=== PATIENT | female | born 1955 | race Caucasian/White ===

== ENCOUNTER 2022-07-23 06:44 | Inpatient (IN) ==
[2022-07-23] MEDS ORDERED: NS 0.9% 1000 ml BAG 1,000 ML IV ONE ×2 (08:17→10:51)
[2022-07-23 09:16] LABS: ABS Basophils 0.2 10^3/ul (0-0.2); ABS Eosinophils 0.2 10^3/ul (0-0.6); ABS Lymphocytes 2.6 10^3/ul (1.0-4.8); ABS Monocytes 0.6 10^3/ul (0-0.8); ABS Neutrophils 3.3 10^3/ul (1.5-7.7); Eosinophil % 3.6 %; Hematocrit 23 % (35-47); Hemoglobin 7.4 g/dL (12.0-16.0); Lymphocyte % 37.8 %; Mean Corpuscular HGB Conc 32 g/dL (31-36); Mean Corpuscular Hemoglobin 28 pg (27-31); Mean Corpuscular Volume 88 fL (80-97); Mean Platelet Volume 7.5 fL (7.4-10.4); Platelet Count 277 10^3/uL (150-450); Red Blood Count 2.66 10^6 /uL (3.70-4.87); Red Cell Distribution Width 17 % (10-15); White Blood Count 6.9 10^3/uL (3.5-10.8)
[2022-07-23 09:39] LABS: High Sens Troponin Baseline 9 pg/mL (<15)
[2022-07-23 10:11] LABS: ALT 22 U/L (7-52); AST 40 U/L (13-39); Acetaminophen < 15 mcg/mL; Albumin 2.4 g/dL (3.2-5.2); Albumin/Globulin Ratio 0.7 (1-3); Alcohol, S < 13 mg/dL (<13); Alkaline Phosphatase 77 U/L (35-149); Anion Gap 9 mmol/L (2-11); Blood Urea Nitrogen 39 mg/dL (6-24); CO2 Carbon Dioxide 22 mmol/L (22-32); Calcium 7.8 mg/dL (8.6-10.3); Chloride 101 mmol/L (101-111); Globulin 3.5 g/dL (2-4); Glucose 95 mg/dL (70-100); Potassium 3.7 mmol/L (3.5-5.0); Salicylate < 2.50 mg/dL (<30); Sodium 132 mmol/L (135-145); Total Protein 5.9 g/dL (6.4-8.9); eGFR CKD-EPI 21.1 (>60)
[2022-07-23 11:11] LABS: High Sensitivity Troponin 1 Hr 16 pg/mL (<15)
[2022-07-23] MEDS ORDERED: Magnesium Sulf 4 GM/100 ML IV 4,000 MG/100 ML BAG IVPB ONE (11:35)
[2022-07-23] MEDS ORDERED: Enoxaparin 40 MG/0.4 ML SYR SUBCUT SCH (12:00)
[2022-07-23 13:23] LABS: % Iron Saturation 94 % (15-55); Iron 158 ug/dL (50-212); Total Iron Binding Capacity 168 mcg/dL (250-450); Transferrin 120 mg/dL (203-362); Unsaturated Iron Binding 10 ug/dL
[2022-07-23 13:43] LABS: Ferritin 665.3 ng/mL (11-307)
[2022-07-23] MEDS ORDERED: Lidocaine 1% MPF 5 ML VIAL INJ ONE (15:12)
[2022-07-23] MEDS: Lactulose 30 ml UDC PO SCH ×2 (17:12→21:06)
[2022-07-23] MEDS: Enoxaparin 30 MG/0.3 ML SYR SUBCUT SCH (17:12)
[2022-07-23] MEDS ORDERED: Albuterol/Ipratropium NEB.SOL (2.5/0.5 MG) 3 ML NEB.SOLN INH PRN (17:58)
[2022-07-23 18:40] LABS: Body Fluid Mono 75 %; Body Fluid Other Cells 6; Body Fluid Source Peritonial Fluid; Body Fluid Total Cells Counted 200
[2022-07-23 18:41] LABS: Body Fluid Appearance Cloudy; Body Fluid Color Yellow
[2022-07-23 18:43] LABS: Body Fluid WBC 106 /mcL
[2022-07-23] MEDS: Albuterol/Ipratropium NEB.SOL (2.5/0.5 MG) 3 ML NEB.SOLN INH SCH (19:18)
[2022-07-23 19:54] LABS: INR 1.32 (0.89-1.11)
[2022-07-23 22:14] LABS: Hematocrit 27 % (35-47); Hemoglobin 8.6 g/dL (12.0-16.0)
[2022-07-24 06:23] LABS: Hematocrit 25 % (35-47); Mean Corpuscular HGB Conc 33 g/dL (31-36); Mean Corpuscular Hemoglobin 29 pg (27-31); Mean Corpuscular Volume 88 fL (80-97); Mean Platelet Volume 7.7 fL (7.4-10.4); Platelet Count 238 10^3/uL (150-450); Red Blood Count 2.81 10^6 /uL (3.70-4.87); Red Cell Distribution Width 17 % (10-15); White Blood Count 6.4 10^3/uL (3.5-10.8)
[2022-07-24 06:27] LABS: INR 1.32 (0.89-1.11)
[2022-07-24 06:59] LABS: Albumin 2.1 g/dL (3.2-5.2); Albumin/Globulin Ratio 0.6 (1-3); Calcium 7.6 mg/dL (8.6-10.3); Globulin 3.3 g/dL (2-4); Magnesium 1.7 mg/dL (1.9-2.7); Potassium 3.6 mmol/L (3.5-5.0); Total Protein 5.4 g/dL (6.4-8.9); eGFR CKD-EPI 25.4 (>60)
[2022-07-24] MEDS: Albuterol/Ipratropium NEB.SOL (2.5/0.5 MG) 3 ML NEB.SOLN INH SCH ×3 (06:59→19:11)
[2022-07-24 07:33] LABS: Target Cells 1+
[2022-07-24 07:34] LABS: ABS Lymphocytes 2.4 10^3/ul (1.0-4.8); ABS Neutrophils 3.5 10^3/ul (1.5-7.7)
[2022-07-24] MEDS: Lactulose 30 ml UDC PO SCH ×3 (09:23→19:59)
[2022-07-24] MEDS: Enoxaparin 30 MG/0.3 ML SYR SUBCUT SCH (12:45)
[2022-07-24] MEDS ORDERED: Magnesium Sulfate IV 3 GM in NS 0.9% 100 ml BAG 100 ML IVPB ONE (15:36)
[2022-07-25 05:27] LABS: Hematocrit 24 % (35-47); Hemoglobin 7.8 g/dL (12.0-16.0); Mean Corpuscular HGB Conc 33 g/dL (31-36); Mean Corpuscular Hemoglobin 29 pg (27-31); Mean Corpuscular Volume 87 fL (80-97); Mean Platelet Volume 7.7 fL (7.4-10.4); Platelet Count 252 10^3/uL (150-450); Red Blood Count 2.74 10^6 /uL (3.70-4.87); Red Cell Distribution Width 17 % (10-15); White Blood Count 7.3 10^3/uL (3.5-10.8)
[2022-07-25 05:38] LABS: ABS Basophils 0.1 10^3/ul (0-0.2); ABS Eosinophils 0.2 10^3/ul (0-0.6); ABS Lymphocytes 2.8 10^3/ul (1.0-4.8); ABS Monocytes 0.8 10^3/ul (0-0.8); ABS Neutrophils 3.5 10^3/ul (1.5-7.7); Eosinophil % 3.3 %; Lymphocyte % 37.2 %; Nucleated Red Blood Cells % 0.1
[2022-07-25 05:52] LABS: Calcium 7.7 mg/dL (8.6-10.3); Magnesium 2.2 mg/dL (1.9-2.7); Potassium 3.6 mmol/L (3.5-5.0); eGFR CKD-EPI 27.2 (>60)
[2022-07-25 08:24] LABS: Folate 6.84 ng/mL (5.90-24.80)
[2022-07-25] MEDS: Albuterol/Ipratropium NEB.SOL (2.5/0.5 MG) 3 ML NEB.SOLN INH SCH (08:30)
[2022-07-25] MEDS: Lactulose 30 ml UDC PO SCH (08:53)
[2022-07-25 11:38] VITALS: BP 117/77
[2022-07-25] MEDS: Enoxaparin 30 MG/0.3 ML SYR SUBCUT SCH (11:45)
[2022-07-25 12:49] LABS: Glucose, BF 121 mg/dL
[2022-07-25 12:50] LABS: Fluid Type, Amylase PERITONEAL
[2022-07-25 12:51] LABS: Lactate Dehydrogenase, BF 68 U/L
[2022-07-25 12:54] LABS: Fluid Type, Protein, Total PERITONEAL; Total Protein, BF 1.2 g/dL
[2022-07-25 15:01] LABS: Fluid Type: PERITONEAL; Triglycerides (BF) 42 mg/dL
[2022-07-25 16:11] LABS: Body Fluid Bilirubin 0.2 mg/dL; Fluid Type PERITONEAL
== END 2022-07-25 13:15 | disposition home or self-care (01) | DRG 71 ==
LOC: ED 06:44 → EDHOLD 11:30 → MED 16:59
PROVIDERS: ADMIT Internal Medicine; ATTEND Internal Medicine